=== PATIENT | female | born 1970 | race Caucasian/White ===

== ENCOUNTER 2025-03-06 13:12 | Outpatient (CLI) | payer BC | END 2025-03-06 13:13 | disposition home or self-care (01) | LOC: CSHMRI 13:12 | PROVIDERS: ATTEND Family Medicine | DX: M47.22 Other spondylosis with radiculopathy, cervical region (principal); R20.0 Anesthesia of skin; Z98.890 Other specified postprocedural states | CPT/HCPCS: 72141 ==